=== PATIENT | female | born 1995 ===

== ENCOUNTER 2024-08-04 06:26 | Day surgery (SDC) | payer OTHER, SELFPAY ==
[2024-07-30 09:56] VITALS: BMI 44.5
[2024-07-30 11:06] LABS: Hematocrit 40.5 % (37.0-47.0); Hemoglobin 13.3 g/dL (12.0-16.0); Mean Corp Hgb Conc. 32.8 g/dL (33.0-37.0); Mean Corpuscular Hgb 26.2 pg (27.0-31.0); Mean Corpuscular Volume 79.7 fL (81.0-99.0); Mean Platelet Volume 10.9 fL (7.4-10.4); Platelet Count 376 10^3/uL (130-400); Red Blood Cell Count 5.08 10^6/uL (4.20-5.40); Red Cell Dist. Width 15.3 % (11.5-14.5); White Blood Cell Count 13.3 10^3/uL (4.8-10.8)
[2024-08-04] VITALS (7 sets, daily range): BP systolic 106–121; BP diastolic 61–82; BMI 44.5
[2024-08-04 09:11] LABS: HCG, Urine Qualitative Screen Negative
[2024-08-04] MEDS: TYLENOL 1000 MG PO (09:19)
[2024-08-04] MEDS: ZOFRAN 4 MG IV (11:26)
[2024-08-04] MEDS: ROXICODONE 5 MG PO (12:28)
== END 2024-08-04 13:00 | disposition home or self-care (01) ==
LOC: SDS 06:26
PROVIDERS: ATTENDING PHYSICIAN Otolaryngology; FAMILY PHYSICIAN Emergency Medicine
DX: J34.2 Deviated nasal septum (principal); J34.3 Hypertrophy of nasal turbinates
CPT/HCPCS: 30520; 30140; 36415; 81025; 85027; 87070

== ENCOUNTER → 2024-09-27 13:16 | Outpatient (REF) | payer OTHER, SELFPAY | LOC: RAD 13:16 | PROVIDERS: ATTENDING PHYSICIAN Nurse Practitioner Family; FAMILY PHYSICIAN Emergency Medicine | DX: R05.1 Acute cough (principal) | CPT/HCPCS: 71046 ==